=== PATIENT | male | born 1985 | race African-American/Black ===

== ENCOUNTER 2024-02-16 10:36 | Emergency (ER) | payer MEDICAID, SELFPAY ==
[2024-02-16 10:39] VITALS: BP 142/80; PULSE 98; RESP 18; TEMP 36.8; O2SAT 99
--- NOTE | 2024-02-16 10:48 | W.ED.GENAD ---
Discharge Plan Disposition Patient Disposition: Home Condition: Stable Discharge Details Clinical Impression: Nausea & vomiting, Hypokalemia Primary Care Provider: Kim Saeed ED Provider: Estrellita Luu Home Meds and New Rx's Prescriptions: Continued celecoxib [Celebrex] 100 mg capsule 100 mg PO BID cyclobenzaprine 5 mg tablet 10 mg PO PRN methocarbamol 750 mg tablet 750 mg PO TID PRN Rx Instructions: 1-2 pills prn ibuprofen 800 mg tablet 800 mg PO TID PRN diazepam 5 mg tablet 5 mg PO ONCE PRN (Reason: Claustrophobia) Qty: 2 0RF Rx Instructions: Take 1 60 minutes prior to MRI. May take an additional 1 if still anxious 30 mins prior to MRI. Discharge Instructions Instructions: Hypokalemia (ED), Acute Nausea and Vomiting (ED) Additional Instructions: Please take the nausea medication as directed up to 3 times daily 20 minutes before eating or drinking anything. Your potassium today was low. Was replenished via supplements. Over the next couple of days please increase your oral intake of foods that are high in potassium such as bananas. Please drink an electrolyte oral rehydration such as Gatorade or similar while having symptoms. Follow up with primary care provider in 3-5 days. Return to ED sooner if any worsening or concerns. Referrals: Kim Saeed [Primary Care Provider] - 3 days HPI General Mode of arrival: ambulatory. Date/Time Provider Initiated Documentation: 02/16/24 10:45. Limitations to Documentation: no limitations. Information obtained by: patient, RN notes reviewed and old records reviewed. HPI Narrative: 38-year-old male presents to the ER with a chief complaint of nausea vomiting x 3 days, associated with bodyaches chills malaise. Patient reports that he cannot even hold down water. Denies any diarrhea. No history of abdominal surgeries. Abdomen is soft nontender with palpation all 4 quadrants. Related Data Home Medications Medication Instructions Recorded Confirmed celecoxib 100 mg capsule (Celebrex) 100 mg PO BID 10/05/22 02/16/24 ibuprofen 800 mg tablet 800 mg PO TID PRN 10/05/22 11/01/22 methocarbamol 750 mg tablet 750 mg PO TID PRN 10/05/22 11/01/22 cyclobenzaprine 5 mg tablet 10 mg PO PRN 11/01/22 02/16/24 diazepam 5 mg tablet 5 mg PO ONCE PRN Claustrophobia #2 11/02/22 tabs Previous Rx's Medication Instructions Recorded diazepam 5 mg tablet 5 mg PO ONCE PRN Claustrophobia #2 11/02/22 tabs Allergies Allergy/AdvReac Type Severity Reaction Status Date / Time No Known Allergies Allergy Verified 11/01/22 11:40 General Stated Complaint: Nausea/Vomit/Diar MIRA: 3 Review of Systems All systems reviewed & are unremarkable except as noted in HPI and below Constitutional Constitutional: Reports body ache(s) and Reports chills Gastrointestinal Gastrointestinal: Reports nausea and Reports vomiting Exam Narrative Exam Narrative: Constitutional: Alert and oriented x3. Appears stated age. Normal body habitus. Head: Normocephalic, no trauma. Eyes: Pupils PERRL, Red reflex noted, EOM's intact. Eyelids symmetrical without lesions, discharge, or swelling. ENT: Bilateral TM's WNL, External ear normal to inspection, no mastoid TTP, swelling, or erythema, Nasal turbinates WNL, no nasal discharge. Normal dentition, Posterior pharynx WNL, no exudate. Chest: RRR, Normal S1, S2, distal pulses intact. Resp: Lungs clear to auscultation bilaterally, no wheezes, rales, or rhonchi. Abdomen: Soft, non-distended, Normoactive bowel sounds all 4 quads. Musculoskeletal: Normal gait, moves all 4 extremities without difficulty. Skin: No suspicious rashes or lesions. Capillary refill less than 2 sec. Neurologic: Cranial nerves II-XII intact. Alert and oriented x 3. Motor: No deficits noted. Sensory: Intact bilaterally all 4 extremities. Hematologic/Lymphatic: No ecchymosis, no lymphadenopathy. Course Vital Signs Vital signs: Vital Signs Temperature 36.8 C 02/16/24 10:39 Pulse 98 H 02/16/24 10:39 Respiratory Rate 18 02/16/24 10:39 Blood Pressure 142/80 H 02/16/24 10:39 Pulse Oximetry 99 02/16/24 10:39 Temperature 36.8 C 02/16/24 10:39 Temperature Source Temporal Artery Scan 02/16/24 10:39 Pulse 98 H 02/16/24 10:39 Respiratory Rate 18 02/16/24 10:39 Blood Pressure 142/80 H 02/16/24 10:39 Pulse Oximetry 99 02/16/24 10:39 Oxygen Delivery Method Room Air 02/16/24 10:39 Oxygen Flow Rate 0 02/16/24 10:39 Medical Decision Making 38-year-old male presents to the ER with a chief complaint of nausea vomiting x 3 days, associated with bodyaches chills malaise. Patient reports that he cannot even hold down water. Denies any diarrhea. No history of abdominal surgeries. Abdomen is soft nontender with palpation all 4 quadrants. Workup ordered including CBC CMP, Fluvid swab, liter of normal saline and Zofran. CBC shows no leukocytosis, CMP shows sodium 139 potassium critically low at 2.5 chloride 97, glucose 121 bilirubin 1.1 Fluvid is negative magnesium within normal limits at 2.0. IV potassium to 10 mill equivalents ordered and 40 mill equivalents p.o. Patient feeling somewhat better per RN report, will PO challenge. Potassium is done infusing. Tolerated PO challenge without difficulty, requesting to be discharged. This text was generated using [employer] system, please disregard any oddities of phrase or misspellings. Lab Data Lab results reviewed: Yes I reviewed the patient's lab results. Labs: Laboratory Tests Range/Units 02/16/24 02/16/24 02/16/24 10:53 11:00 11:24 WBC (4.4-10.8) 10^3/uL 6.18 RBC (4.36-5.78) 10^6/uL 5.18 Hgb (13.5-17.5) g/dL 15.1 Hct (40.0-50.0) % 45.0 MCV (80-95) fL 87 MCH (27.0-33.0) pg 29.2 MCHC (32.0-36.0) % 33.6 RDW (11.8-14.1) % 13.1 Plt Count (130-400) 10^3/uL 293 MPV (8.0-11.0) fL 9.1 Immature Gran % 0.3 Neutrophils % 34.2 Lymphocytes % 53.2 Monocytes % 11.2 Eosinophils % 0.8 Basophils % 0.3 Nucleated RBC % (0.0-0.3) % 0.0 Absolute Neutrophils (1.2-6.7) 10^3/uL 2.11 Absolute Lymphocytes (1.2-3.4) 10^3/uL 3.29 Absolute Monocytes (0.1-0.8) 10^3/uL 0.69 Absolute Eosinophils (0.0-0.7) 10^3/uL 0.05 Absolute Basophils (0.0-0.2) 10^3/uL 0.02 Sodium (136-145) mmol/L 139 Potassium (3.5-5.1) mmol/L 2.5 L* Chloride (98-107) mmol/L 97 L Carbon Dioxide (21.0-32.0) mmol/L 32.0 Anion Gap (3-11) mmol/L 10.0 BUN (7-18) mg/dL 9 Creatinine (0.70-1.30) mg/dL 1.1 Est GFR (CKD-EPI 2020) (mL/min/1.73m2) 89.22 Glucose (74-106) mg/dL 121 H Calcium (8.5-10.1) mg/dL 9.1 Magnesium (1.8-2.4) mg/dL 2.0 Total Bilirubin (0.2-1.0) mg/dL 1.1 H AST (15-37) U/L 15 ALT (16-63) U/L 15 L Alkaline Phosphatase (46-116) U/L 60 Total Protein (6.4-8.2) g/dL 8.0 Albumin (3.4-5.0) g/dL 4.4 COVID-19 Source Nasopharynx SARS-CoV-2 (PCR) (Negative) Negative Influenza Type A (PCR) (Negative) Negative Influenza Type B (PCR) (Negative) Negative RSV (PCR) (Negative) Negative Add-On Test Request done Quality:SDOH Health Related Social Needs: No Data to Display PFSH All Active Problems (Updated 02/16/24 @ 13:43 by Estrellita Luu NP) Hypokalemia (Acute) Nausea & vomiting (Acute) Adhesive capsulitis of right shoulder (Acute) Restless legs (Acute) Multiple joint pain (Acute) Vitamin D deficiency (Acute) Strain of right trapezius muscle (Acute) Medical History Injury of knee Injury of left ankle Social History Smoking risk assessment performed?: No Current gender identity: male
[2024-02-16] MEDS: Ondansetron 4 MG/2 ML VIAL IVP (11:00)
[2024-02-16 11:06] VITALS: BP 142/80; PULSE 98; RESP 18; TEMP 36.8; O2SAT 99
[2024-02-16 11:07] LABS: Abs Immature Grans 0.02 10^3/uL (0.0-0.06); Absolute Basophil Count 0.02 10^3/uL (0.0-0.2); Absolute Eosinophil Count 0.05 10^3/uL (0.0-0.7); Absolute Lymphocyte Count 3.29 10^3/uL (1.2-3.4); Absolute Monocyte Count 0.69 10^3/uL (0.1-0.8); Absolute Neutrophil Count 2.11 10^3/uL (1.2-6.7); Basophils % 0.3; Eosinophils % 0.8; HGB 15.1 g/dL (13.5-17.5); Immature Grans % 0.3; Lymphocytes % 53.2; MCH 29.2 pg (27.0-33.0); MCHC 33.6 % (32.0-36.0); MCV 87 fL (80-95); MPV 9.1 fL (8.0-11.0); Monocytes % 11.2; Neutrophils % 34.2; Platelet Count 293 10^3/uL (130-400); RBC 5.18 10^6/uL (4.36-5.78); RDW 13.1 % (11.8-14.1); RDW-SD 41.8 fL; WBC 6.18 10^3/uL (4.4-10.8)
[2024-02-16] MEDS: Normal Saline 1,000 ML 1000 ML IV (11:16)
[2024-02-16] MEDS: Normal Saline 1,000 ML 250 ML IV (11:16)
[2024-02-16 11:22] LABS: ALT 15 U/L (16-63); AST 15 U/L (15-37); Albumin 4.4 g/dL (3.4-5.0); Alkaline Phosphatase 60 U/L (46-116); BUN 9 mg/dL (7-18); Bilirubin, Total 1.1 mg/dL (0.2-1.0); CREATININE 1.1 mg/dL (0.70-1.30); Calcium 9.1 mg/dL (8.5-10.1); Chloride 97 mmol/L (98-107); Estimated GFR 89.22 (mL/min/1.73m2); Glucose 121 mg/dL (74-106); Sodium 139 mmol/L (136-145)
[2024-02-16 11:24] LABS: Potassium 2.5 mmol/L (3.5-5.1)
[2024-02-16 11:39] LABS: Lab Add On Test done
[2024-02-16 11:43] LABS: COVID-19 PCR Negative (Negative); Influenza A PCR Negative (Negative); Influenza B PCR Negative (Negative); RSV PCR Negative (Negative)
[2024-02-16 11:47] LABS: Source Nasopharynx
[2024-02-16] MEDS: POTASSIUM CHLORIDE 10 MEQ/100 ML BAG 100 MEQ IVINF (12:02)
[2024-02-16] MEDS: Potassium Chloride 20 MEQ TABCR 40 MEQ PO (12:02)
[2024-02-16] MEDS: Ondansetron O.D.T. 4 MG TABEF, 3 TABS/BTL PO (13:51)
[2024-02-16 13:52] VITALS: BP 157/84; PULSE 77; RESP 16; O2SAT 100
== END 2024-02-16 14:26 | disposition home or self-care (01) ==
PROVIDERS: Emergency Provider Registered Nurse Emergency; PCP Physician Assistant
DX: R53.81 Other malaise (principal); R11.2 Nausea with vomiting, unspecified; E87.6 Hypokalemia
CPT/HCPCS: 36415; 80053; 87637; 96361; 96365; 96375; 99284; 83735; 85025; J2405; J3480

== ENCOUNTER 2024-07-19 11:50 | Outpatient (CLI) | payer MEDICAID, SELFPAY ==
--- NOTE | 2024-07-19 12:15 | DI.RAD_ITS ---
Exam(s) XR CERVICAL SPINE COMP 4-5V EXAM: XR CERVICAL SPINE COMP 4-5V CLINICAL HISTORY: M25.511 Pain rt shoulder. TECHNIQUE: 2D digital imaging was performed. Five images were obtained. AP, odontoid, lateral and bi lateral oblique images were obtained. COMPARISON: DX Cervical Spine 2-3 vw from 05/23/2022 FINDINGS: The odontoid is intact. The lateral masses are well aligned. There is normal alignment of the cervi ernesto spine. There are small osteophytes seen at C6-C7. No acute fracture or subluxation is present. Th ere is moderate right neural foraminal stenosis at C6-C7. The cervical thoracic junction is well main tained. The prevertebral soft tissues are unremarkable. Lung apices are clear. 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 DATA REPOSITORY: RADIATION DOSE DELIVERED:
--- NOTE | 2024-07-19 12:20 | DI.RAD_ITS ---
Exam(s) XR SHOULDER RT COMPLETE 2+V EXAM: XR SHOULDER RT COMPLETE 2+V CLINICAL HISTORY: M25.511 Pain in RT shoulder. TECHNIQUE: 2D digital imaging was performed of the right shoulder. Six images were obtained. AP, G rashey, Y-view and axillary views were obtained. COMPARISON: DX Shoulder 2 vw Min RT from 05/23/2022 FINDINGS: BONES: No acute fracture is present. No bony destructive lesion is seen. There is a small spur at the lateral aspect of the acromion. JOINTS: No dislocation present. The glenohumeral and acromioclavicular joints are unremarkable. SOFT TISSUE: Normal. IMPRESSION: No acute abnormality. If there is concern for internal derangement, an MRI should be considered for further evaluation. DATA REPOSITORY: RADIATION DOSE DELIVERED:
== END 2024-07-19 12:10 ==
PROVIDERS: PCP Physician Assistant; Visit Provider Physician Assistant Medical
DX: M25.511 Pain in right shoulder (principal); M50.123 Cervical disc disorder at C6-C7 level with radiculopathy
CPT/HCPCS: 72050; 73030

== ENCOUNTER 2025-04-01 15:34 | Outpatient (REF) | payer MEDICAID, SELFPAY ==
[2025-04-01 20:39] LABS: Abs Immature Grans 0.01 10^3/uL (0.0-0.06); Absolute Basophil Count 0.02 10^3/uL (0.0-0.2); Absolute Eosinophil Count 0.11 10^3/uL (0.0-0.7); Absolute Lymphocyte Count 2.25 10^3/uL (1.2-3.4); Absolute Monocyte Count 0.64 10^3/uL (0.1-0.8); Basophils % 0.4 %; Eosinophils % 2.1 %; HGB 15.3 g/dL (13.5-17.5); Immature Grans % 0.2 %; Lymphocytes % 43.9 %; MCH 28.4 pg (27.0-33.0); MCHC 32.6 % (32.0-36.0); MCV 87 fL (80-95); MPV 10.4 fL (8.0-11.0); Monocytes % 12.5 %; Neutrophils % 40.9 %; Platelet Count 318 10^3/uL (130-400); RBC 5.38 10^6/uL (4.36-5.78); RDW 13.2 % (11.8-14.1); RDW-SD 41.8 fL; WBC 5.13 10^3/uL (4.4-10.8)
[2025-04-01 20:55] LABS: Hemoglobin A1C 5.9 % (<5.7)
[2025-04-01 21:33] LABS: Calculated LDL 102 mg/dL (<100); Cholesterol 217 mg/dL (<200); HDL Cholesterol 101 mg/dL (>or=40); Triglyceride 71 mg/dL (<150); Vitamin D 25 Total 13 ng/mL (30-100)
== END 2025-04-01 15:35 | disposition home or self-care (01) ==
LOC: NCHCN 15:34
PROVIDERS: PCP Physician Assistant; Visit Provider Student in an Organized Health Care Education/Training Program
DX: Z13.1 Encounter for screening for diabetes mellitus (principal); E55.9 Vitamin D deficiency, unspecified; Z13.220 Encounter for screening for lipoid disorders; R06.83 Snoring
CPT/HCPCS: 80061; 82306; 83036; 85025